=== PATIENT | male | born 1935 | race Caucasian/White ===

== ENCOUNTER → 2017-01-03 | Outpatient (CLI) | payer MEDICARE, OTHER ==
[2017-01-03 13:35] LABS: Calcium 9.5 mg/dL (8.5-10.1); Potassium 4.6 mmol/L (3.5-5.1)
== END | disposition home or self-care (01) ==
LOC: LAB 08:39
PROVIDERS: ATTEND Internal Medicine Cardiovascular Disease
DX: I10 Essential (primary) hypertension (principal); E11.9 Type 2 diabetes mellitus without complications
CPT/HCPCS: 36415; 80048; 83036

== ENCOUNTER → 2017-04-03 | Outpatient (CLI) | payer MEDICARE, OTHER ==
[2017-04-03 12:35] LABS: BUN/Creatinine Ratio 18.3; Calcium 9.1 mg/dL (8.5-10.1); Potassium 4.4 mmol/L (3.5-5.1)
== END | disposition home or self-care (01) ==
LOC: LAB 08:31
PROVIDERS: ATTEND Internal Medicine Cardiovascular Disease
DX: I10 Essential (primary) hypertension (principal); E11.9 Type 2 diabetes mellitus without complications
CPT/HCPCS: 36415; 80048; 83036

== ENCOUNTER → 2017-07-11 | Outpatient (CLI) | payer MEDICARE ==
[2017-07-11 12:41] LABS: Albumin 3.4 g/dL (3.4-5.0); BUN/Creatinine Ratio 17.1; Calcium 9.5 mg/dL (8.5-10.1); Potassium 4.4 mmol/L (3.5-5.1); Total Protein 7.9 g/dL (6.4-8.2)
== END | disposition home or self-care (01) ==
LOC: LAB 08:47
PROVIDERS: ATTEND Internal Medicine Cardiovascular Disease
DX: I10 Essential (primary) hypertension (principal); E78.00 Pure hypercholesterolemia, unspecified; E11.9 Type 2 diabetes mellitus without complications
CPT/HCPCS: 36415; 80053; 80061; 83036

== ENCOUNTER → 2017-09-13 | Outpatient (CLI) | payer MEDICARE ==
[2017-09-13 12:55] LABS: BUN/Creatinine Ratio 14.9; Calcium 9.2 mg/dL (8.5-10.1); Potassium 4.6 mmol/L (3.5-5.1)
== END | disposition home or self-care (01) ==
LOC: LAB 09:20
PROVIDERS: ATTEND Internal Medicine Cardiovascular Disease
DX: I10 Essential (primary) hypertension (principal); E11.9 Type 2 diabetes mellitus without complications
CPT/HCPCS: 36415; 80048; 83036

== ENCOUNTER → 2017-10-25 | Outpatient (CLI) | payer MEDICARE ==
[2017-10-25 11:56] LABS: BUN/Creatinine Ratio 16.1; Calcium 9.2 mg/dL (8.5-10.1); Potassium 4.4 mmol/L (3.5-5.1)
== END | disposition home or self-care (01) ==
LOC: LAB 09:06
PROVIDERS: ATTEND Internal Medicine Cardiovascular Disease
DX: I10 Essential (primary) hypertension (principal)
CPT/HCPCS: 36415; 80048

== ENCOUNTER → 2017-11-21 | Outpatient (CLI) | payer MEDICARE ==
[2017-11-21 12:32] LABS: Albumin 3.1 g/dL (3.4-5.0); BUN/Creatinine Ratio 14.5; Bilirubin, Total 0.8 mg/dL (0.2-1.0); Calcium 9.1 mg/dL (8.5-10.1); Potassium 4.6 mmol/L (3.5-5.1); Total Protein 7.6 g/dL (6.4-8.2)
== END | disposition home or self-care (01) ==
LOC: LAB 08:21
PROVIDERS: ATTEND Internal Medicine Cardiovascular Disease
DX: E78.00 Pure hypercholesterolemia, unspecified (principal); I10 Essential (primary) hypertension; E11.9 Type 2 diabetes mellitus without complications
CPT/HCPCS: 36415; 80053; 80061; 83036

== ENCOUNTER → 2018-01-04 | Outpatient (CLI) | payer MEDICARE | END | disposition home or self-care (01) | LOC: Rad HDHVI 14:50 | PROVIDERS: ATTEND Internal Medicine Cardiovascular Disease | DX: I10 Essential (primary) hypertension (principal); E11.9 Type 2 diabetes mellitus without complications | CPT/HCPCS: 93306 ==

== ENCOUNTER → 2018-01-19 | Outpatient (CLI) | payer MEDICARE ==
[~2018-01-19] VITALS: Ht 170.2 cm; Wt 88.5 kg
[~2018-01-19] MED LIST: ADENOSINE 74 MG in GIVE UN-DILUTED 0 ML IV ONE; ADENOSINE 90 MG/30 ML INJ IV ONE
[2018-01-19 12:21] LABS: Basophils # (auto) 0.1 uL; Basophils % (auto) 1.2 % (0.0-2.0); Eosinophils # (auto) 0.7 uL; Eosinophils % (auto) 5.6 % (0.0-7.0); Hematocrit 39.9 % (41.0-53.0); Lymphocytes # (auto) 1.7 uL; Lymphocytes % (auto) 14.2 % (10.0-50.0); Mean Corpuscular Hemoglobin 28.7 pg (28.0-32.0); Mean Corpuscular Hgb Conc. 32.5 g/dL (32.0-36.0); Monocytes # (auto) 0.9 uL; Monocytes % (auto) 7.4 % (0.0-12.0); Neutrophils # (auto) 8.5 uL; Neutrophils % (auto) 71.6 % (37.0-80.0); Platelet Count (auto) 343 10^3/uL (140-450); Red Blood Cells 4.53 10^6/uL (4.5-5.90); Red Cell Distribution Width 14.9 % (11.8-14.3); White Blood Cell 11.9 10^3/uL (4.4-10.8)
[2018-01-19 12:22] LABS: Urine Blood Negative /uL (Negative); Urine Specific Gravity 1.011 (1.001-1.035)
[2018-01-19 12:41] LABS: Albumin 2.9 g/dL (3.4-5.0); BUN/Creatinine Ratio 12.9; Bilirubin, Total 0.6 mg/dL (0.2-1.0); Calcium 9.5 mg/dL (8.5-10.1); Potassium 4.7 mmol/L (3.5-5.1); Total Protein 7.3 g/dL (6.4-8.2)
[2018-01-19 12:42] LABS: Free T4 (Free Thyroxine) 1.04 ng/dL (0.89-1.76); Prostate Specific Antigen 1.45 ng/mL (0.0-4.0)
== END | disposition home or self-care (01) ==
LOC: Rad HDHVI 09:41
PROVIDERS: ATTEND Internal Medicine Cardiovascular Disease
DX: I49.5 Sick sinus syndrome (principal); E78.5 Hyperlipidemia, unspecified; D64.9 Anemia, unspecified; I10 Essential (primary) hypertension; E03.9 Hypothyroidism, unspecified; E11.9 Type 2 diabetes mellitus without complications; E55.9 Vitamin D deficiency, unspecified; R53.81 Other malaise; R97.20 Elevated prostate specific antigen [PSA]; K74.1 Hepatic sclerosis; D51.9 Vitamin B12 deficiency anemia, unspecified; N39.0 Urinary tract infection, site not specified
CPT/HCPCS: 36415; 78452; 80053; 80061; 81003; 82306; 82607; 83036; 84153; 84403; 84439; 84443; 85025; 93005; 96374; 96375; A9500; J0153

== ENCOUNTER → 2018-11-19 | Outpatient (CLI) | payer MEDICARE | END | disposition home or self-care (01) | LOC: LAB 09:05 | PROVIDERS: ATTEND Internal Medicine Cardiovascular Disease | DX: E11.40 Type 2 diabetes mellitus with diabetic neuropathy, unspecified (principal) | CPT/HCPCS: 36415; 83036 ==

== ENCOUNTER → 2018-12-31 | Outpatient (CLI) | payer MEDICARE ==
[~2018-12-31] MED LIST changes: -ADENOSINE 74 MG in GIVE UN-DILUTED 0 ML IV ONE; -ADENOSINE 90 MG/30 ML INJ IV ONE; +CLON0.1T PO; +DOCU-94 PO
[2018-12-31 12:39] LABS: Potassium 5.4 mmol/L (3.5-5.1)
[2018-12-31 12:42] LABS: BUN/Creatinine Ratio 17.6; Calcium 8.8 mg/dL (8.5-10.1)
== END | disposition home or self-care (01) ==
LOC: Rad HDHVI 10:30
PROVIDERS: ATTEND Internal Medicine Cardiovascular Disease
DX: I08.1 Rheumatic disorders of both mitral and tricuspid valves (principal); I27.20 Pulmonary hypertension, unspecified; E11.9 Type 2 diabetes mellitus without complications; I11.9 Hypertensive heart disease without heart failure
CPT/HCPCS: 36415; 80048; 83036; 93306

== ENCOUNTER → 2019-01-31 | Outpatient (CLI) | payer MEDICARE ==
[~2019-01-31] VITALS: Ht 170.2 cm; Wt 95.3 kg
[~2019-01-31] MED LIST changes: +ADENOSINE 80 MG in GIVE UN-DILUTED 0 ML IV ONE; +ADENOSINE 90 MG/30 ML INJ IV ONE
== END | disposition home or self-care (01) ==
LOC: Rad HDHVI 13:50
PROVIDERS: ATTEND Internal Medicine Cardiovascular Disease
DX: E11.9 Type 2 diabetes mellitus without complications (principal); E16.2 Hypoglycemia, unspecified; E87.6 Hypokalemia; R00.1 Bradycardia, unspecified
CPT/HCPCS: 78452; 93005; 96374; 96375; A9500; J0153

== ENCOUNTER → 2019-02-13 | Outpatient (CLI) | payer MEDICARE ==
[~2019-02-13] MED LIST changes: -ADENOSINE 80 MG in GIVE UN-DILUTED 0 ML IV ONE; -ADENOSINE 90 MG/30 ML INJ IV ONE
[2019-02-13 15:58] LABS: Basophils # (auto) 0.1 uL; Monocytes # (auto) 0.8 uL; Red Cell Distribution Width 16.4 % (11.8-14.3)
[2019-02-13 16:00] LABS: Basophils % (auto) 1.7 % (0.0-2.0); Eosinophils # (auto) 0.4 uL; Eosinophils % (auto) 4.2 % (0.0-7.0); Hematocrit 23.1 % (41.0-53.0); Lymphocytes # (auto) 0.6 uL; Lymphocytes % (auto) 7.7 % (10.0-50.0); Mean Corpuscular Hemoglobin 20.8 pg (28.0-32.0); Mean Corpuscular Hgb Conc. 28.4 g/dL (32.0-36.0); Mean Corpuscular Volume 73.4 fL (80.0-100.0); Neutrophils # (auto) 6.4 uL; Neutrophils % (auto) 76.4 % (37.0-80.0); Nucleated Red Blood Cells % 0.2 %; Platelet Count (auto) 295 10^3/uL (140-450); Red Blood Cells 3.15 10^6/uL (4.5-5.90); White Blood Cell 8.4 10^3/uL (4.4-10.8)
[2019-02-13 16:01] LABS: Potassium 5.1 mmol/L (3.5-5.1)
[2019-02-13 16:13] LABS: BUN/Creatinine Ratio 15.8
[2019-02-13 16:26] LABS: Hemoglobin 6.6 g/dL (13.5-17.5)
== END | disposition home or self-care (01) ==
LOC: LAB 12:13
PROVIDERS: ATTEND Internal Medicine Cardiovascular Disease
DX: I13.0 Hypertensive heart and chronic kidney disease with heart failure and stage 1 through stage 4 chronic kidney disease, or unspecified chronic kidney disease (principal); E11.22 Type 2 diabetes mellitus with diabetic chronic kidney disease; I50.33 Acute on chronic diastolic (congestive) heart failure; N18.2 Chronic kidney disease, stage 2 (mild); E11.40 Type 2 diabetes mellitus with diabetic neuropathy, unspecified
CPT/HCPCS: 36415; 80048; 83036; 85025

== ENCOUNTER 2019-02-15 06:42 | Day surgery (SDC) | payer MEDICARE ==
[2019-02-15] VITALS (9 sets, daily range): BP systolic 111–139; BP diastolic 51–66
--- NOTE | 2019-02-15 07:53 | NUR ---
PT VERBALIZES SIGNS AND SYMPTOMS TO REPORT. PT DENIES DISTRESS. PT AGREES TO BLOOD TRANSFUSION AND KNOWS REASON WHY HE NEEDS ONE.
--- NOTE | 2019-02-15 10:00 | NUR ---
TRANSFUSION IS COMPLETE. PT DENIES DISTRESS. PT STATES HE FEELS BETTER.
--- NOTE | 2019-02-15 12:27 | NUR ---
PT CONTINUES TO DENY DISTRESS. PT STATES HE FEELS LESS SOB. PER PT EVEN AT REST HE WOULD BE SOB.
--- NOTE | 2019-02-15 12:42 | NUR ---
TRANSFUSION COMPLETE. PT DENIES DISTRESS. PT STATES HE FEELS BETTER. NO S&S OF RXN.
--- NOTE | 2019-02-15 12:50 | NUR ---
PT VERBALIZES UNDERSTANDING OF AFTERCARE. PT SKIN PINK WARM AND DRY. VSS. PT AMBULATES WITH STEADY GAIT. NAD NOTED. PT DENIES DISTRESS. PT STATE IMPROVEMENT. PIV DC'D COMPLETE AND INTACT.
== END 2019-02-15 12:54 | disposition home or self-care (01) ==
LOC: CATH 06:42
PROVIDERS: ATTEND Internal Medicine Cardiovascular Disease
DX: D64.9 Anemia, unspecified (principal); Z98.890 Other specified postprocedural states
CPT/HCPCS: 36430; 86850; 86900; 86901; 86920; J7040; P9016

== ENCOUNTER → 2019-03-13 | Outpatient (CLI) | payer MEDICARE ==
[2019-03-13 15:40] LABS: Basophils # (auto) 0.2 uL; Basophils % (auto) 2.1 % (0.0-2.0); Eosinophils # (auto) 0.5 uL; Hemoglobin 8.9 g/dL (13.5-17.5); Mean Corpuscular Hgb Conc. 29.8 g/dL (32.0-36.0); Monocytes # (auto) 0.7 uL; Neutrophils # (auto) 6.5 uL; Nucleated Red Blood Cells % 0.1 %
[2019-03-13 15:44] LABS: Eosinophils % (auto) 5.6 % (0.0-7.0); Hematocrit 29.7 % (41.0-53.0); Lymphocytes % (auto) 10.8 % (10.0-50.0); Mean Corpuscular Volume 77.3 fL (80.0-100.0); Monocytes % (auto) 8.3 % (0.0-12.0); Neutrophils % (auto) 73.2 % (37.0-80.0); Platelet Count (auto) 333 10^3/uL (140-450); Red Blood Cells 3.84 10^6/uL (4.5-5.90); White Blood Cell 8.9 10^3/uL (4.4-10.8)
[2019-03-13 15:54] LABS: Red Cell Distribution Width 23.6 % (11.8-14.3)
[2019-03-13 16:04] LABS: Albumin 3.6 g/dL (3.4-5.0); BUN/Creatinine Ratio 19.3; Bilirubin, Total 0.8 mg/dL (0.2-1.0); Calcium 9.1 mg/dL (8.5-10.1); Total Protein 7.3 g/dL (6.4-8.2)
[2019-03-13 16:08] LABS: Potassium 5.6 mmol/L (3.5-5.1)
== END | disposition home or self-care (01) ==
LOC: CHF HDHVI 12:18
PROVIDERS: ATTEND Internal Medicine Cardiovascular Disease
DX: D64.9 Anemia, unspecified (principal); I10 Essential (primary) hypertension; Z79.899 Other long term (current) drug therapy
CPT/HCPCS: 36415; 80053; 83036; 85025

== ENCOUNTER → 2019-04-24 | Outpatient (CLI) | payer MEDICARE ==
[2019-04-24 12:10] LABS: Potassium 5.1 mmol/L (3.5-5.1)
[2019-04-24 12:21] LABS: Albumin 3.2 g/dL (3.4-5.0); BUN/Creatinine Ratio 12.1; Bilirubin, Total 0.8 mg/dL (0.2-1.0); Calcium 9.2 mg/dL (8.5-10.1); Total Protein 7.2 g/dL (6.4-8.2)
== END | disposition home or self-care (01) ==
LOC: LAB 09:25
PROVIDERS: ATTEND Internal Medicine Cardiovascular Disease
DX: E87.6 Hypokalemia (principal); I10 Essential (primary) hypertension
CPT/HCPCS: 36415; 80053

== ENCOUNTER → 2019-05-06 | Outpatient (CLI) | payer MEDICARE | END | disposition home or self-care (01) | LOC: Rad HDHVI 10:48 | PROVIDERS: ATTEND Internal Medicine Cardiovascular Disease | DX: K57.30 Diverticulosis of large intestine without perforation or abscess without bleeding (principal); K40.90 Unilateral inguinal hernia, without obstruction or gangrene, not specified as recurrent; K44.9 Diaphragmatic hernia without obstruction or gangrene; N40.0 Benign prostatic hyperplasia without lower urinary tract symptoms | CPT/HCPCS: 74176 ==

== ENCOUNTER → 2019-09-04 | Outpatient (CLI) | payer MEDICARE ==
[2019-09-04 12:07] LABS: Basophils # (auto) 0.1 uL; Basophils % (auto) 1.4 % (0.0-2.0); Eosinophils # (auto) 0.4 uL; Eosinophils % (auto) 5.6 % (0.0-7.0); Hematocrit 45.9 % (41.0-53.0); Hemoglobin 15.4 g/dL (13.5-17.5); Lymphocytes # (auto) 0.9 uL; Lymphocytes % (auto) 12.9 % (10.0-50.0); Mean Corpuscular Hgb Conc. 33.5 g/dL (32.0-36.0); Mean Corpuscular Volume 89.6 fL (80.0-100.0); Monocytes # (auto) 0.6 uL; Monocytes % (auto) 8.9 % (0.0-12.0); Neutrophils % (auto) 71.2 % (37.0-80.0); Nucleated Red Blood Cells % 0.1 %; Platelet Count (auto) 191 10^3/uL (140-450); Red Blood Cells 5.13 10^6/uL (4.5-5.90); Red Cell Distribution Width 15.8 % (11.8-14.3)
[2019-09-04 12:36] LABS: Albumin 3.6 g/dL (3.4-5.0); BUN/Creatinine Ratio 15.1; Bilirubin, Direct 0.3 mg/dL (0-0.2); Bilirubin, Total 1.6 mg/dL (0.2-1.0); Total Protein 7.3 g/dL (6.4-8.2)
[2019-09-04 14:14] LABS: Potassium 5.9 mmol/L (3.5-5.1)
== END | disposition home or self-care (01) ==
LOC: LAB 09:35
PROVIDERS: ATTEND Internal Medicine Cardiovascular Disease
DX: E03.9 Hypothyroidism, unspecified (principal); K90.9 Intestinal malabsorption, unspecified; C61 Malignant neoplasm of prostate; E29.1 Testicular hypofunction; E11.40 Type 2 diabetes mellitus with diabetic neuropathy, unspecified; Z79.899 Other long term (current) drug therapy
CPT/HCPCS: 36415; 80048; 80061; 80076; 82306; 83036; 84153; 84403; 84443; 85025

== ENCOUNTER → 2019-09-06 | Outpatient (CLI) | payer MEDICARE ==
[~2019-09-06] MED LIST changes: +FUROSEMIDE 40 MG/4 ML VIAL IV ONE; +FUROSEMIDE 40 MG/4 ML VIAL ONE; +SODIUM CHLORIDE 0.9% 500 ML IV ONE
[2019-09-06 10:00] VITALS: BP 141/73
[2019-09-06 11:36] VITALS: BP 131/62
--- NOTE | 2019-09-06 11:36 | NUR ---
[facility] Discharge Instructions See e-MAR for any mediations given with this visit. Patient education given on disease process. Patient verbalized understanding. Previous labs reviewed. Patient discharged in stable condition with after care instructions and follow up appointment. NOTE LASIX IVP ADMIN BY ROSETTA BERNAL NS [id number] ADMIN BY ROSETTA BERNAL SAMPLES OF VALTESSA GIVEN TO PATIENT WITH INSTRUCTIONS AND FOLLOW UP LABS ON Monday09/11/19
== END | disposition home or self-care (01) ==
LOC: CHF HDHVI 09:52
PROVIDERS: ATTEND Internal Medicine Cardiovascular Disease
DX: E78.5 Hyperlipidemia, unspecified (principal); E87.5 Hyperkalemia; E11.40 Type 2 diabetes mellitus with diabetic neuropathy, unspecified; E03.9 Hypothyroidism, unspecified; I10 Essential (primary) hypertension; Z79.899 Other long term (current) drug therapy
CPT/HCPCS: 36415; 84132; 96361; 96374; G0463; J1940; J7040

== ENCOUNTER → 2019-09-11 | Outpatient (CLI) | payer MEDICARE ==
[~2019-09-11] MED LIST changes: -FUROSEMIDE 40 MG/4 ML VIAL IV ONE; -FUROSEMIDE 40 MG/4 ML VIAL ONE; -SODIUM CHLORIDE 0.9% 500 ML IV ONE
[2019-09-11 11:20] VITALS: BP 110/62
[2019-09-11 12:37] LABS: Anion Gap 7 (5-15); Carbon Dioxide 26 mmol/L (21-32); Chloride 107 mmol/L (98-107); Glucose 160 mg/dL (74-106); Potassium 4.7 mmol/L (3.5-5.1); Sodium 140 mmol/L (136-145)
[2019-09-11 12:38] LABS: BUN/Creatinine Ratio 16.2; Blood Urea Nitrogen 38 mg/dL (7-18); Calcium 9.2 mg/dL (8.5-10.1); GFR African American 34 mL/min; GFR Non-African American 28 mL/min
[2019-09-11 12:45] VITALS: BP 110/62
--- NOTE | 2019-09-11 12:45 | NUR ---
[facility] Discharge Instructions See e-MAR for any mediations given with this visit. Patient education given on disease process. Patient verbalized understanding. Previous labs reviewed. Patient discharged in stable condition with after care instructions and follow up appointment. NOTE PATIENT PRESCRIPTION FOR VALTESSA 8.4G DAILY SENT ELECTRONICALLY TO PATIENT PREFERRED PHARMACY.
== END | disposition home or self-care (01) ==
LOC: CHF HDHVI 10:53
PROVIDERS: ATTEND Internal Medicine Cardiovascular Disease
DX: E87.6 Hypokalemia (principal)
CPT/HCPCS: 36415; 80048; G0463

== ENCOUNTER → 2019-09-17 | Outpatient (CLI) | payer MEDICARE ==
[2019-09-17 12:38] VITALS: BP 139/68
--- NOTE | 2019-09-17 12:38 | NUR ---
[facility] ARRIVED AT [facility] FOR LAB DRAW. PT ON VALTESSA DAILY . K AND MG DRAWN. PT A/O X 4 0 DISTRESS HARD OF HEARING. VSS
[2019-09-17 13:00] VITALS: BP 140/66
--- NOTE | 2019-09-17 13:00 | NUR ---
Discharge Instructions See e-MAR for any mediations given with this visit. Patient education given on disease process. Patient verbalized understanding. Previous labs reviewed. Patient discharged in stable condition with after care instructions and follow up appointment. MEDICATION REVIEW OF VALTESSA DONE. EXPLAINED AND PROVIDED LITERATURE ABOUT THE ADMINISTRATION OF VALTESSA AND THE POSSIBLE SIDE EFFECTS, PT STATED HE TAKES HIS VALTESSA AT 5PM DAILY AND HIS OTHER ORAL MEDS AT 8PM. EXPLAINED TO PATIENT THAT [facility] WILL BE DELIVERING MEDICATION TO THE PATIENTS HOUSE. PT VERBALIZED UNDERSTANDING. PROVIDED SAMPLE BOX TO PATIENT AND INSTRUCTED TO HOLD MEDICATION UNTIL LABS RESULTS FROM TODAY ARE RECEIVED. WILL CALL AND UPDATE PATIENT. PATIENT VERBALIZED UNDERSTANDING OF THE PLAN OF CARE.
[2019-09-17 15:27] LABS: Magnesium 2.2 mg/dL (1.6-2.6); Potassium 4.7 mmol/L (3.5-5.1)
== END | disposition home or self-care (01) ==
LOC: CHF HDHVI 12:47
PROVIDERS: ATTEND Internal Medicine Cardiovascular Disease
DX: E87.6 Hypokalemia (principal); I10 Essential (primary) hypertension; E11.9 Type 2 diabetes mellitus without complications
CPT/HCPCS: 36415; 83735; 84132; G0463

== ENCOUNTER → 2019-09-25 | Outpatient (CLI) | payer MEDICARE ==
[2019-09-25 12:21] LABS: Potassium 4.5 mmol/L (3.5-5.1)
== END | disposition home or self-care (01) ==
LOC: CHF HDHVI 11:22
PROVIDERS: ATTEND Internal Medicine Cardiovascular Disease
DX: E87.5 Hyperkalemia (principal); E83.42 Hypomagnesemia; R94.4 Abnormal results of kidney function studies
CPT/HCPCS: 36415; 82565; 83735; 84132; 84520

== ENCOUNTER → 2019-10-15 | Outpatient (CLI) | payer MEDICARE ==
[2019-10-15 16:31] LABS: Potassium 5.1 mmol/L (3.5-5.1)
== END | disposition home or self-care (01) ==
LOC: CHF HDHVI 12:43
PROVIDERS: ATTEND Internal Medicine Cardiovascular Disease
DX: E83.40 Disorders of magnesium metabolism, unspecified (principal); E87.6 Hypokalemia
CPT/HCPCS: 36415; 83735; 84132

== ENCOUNTER → 2019-12-11 | Outpatient (CLI) | payer MEDICARE ==
[2019-12-11 15:58] LABS: Basophils # (auto) 0.1 uL; Basophils % (auto) 2.1 % (0.0-2.0); Eosinophils # (auto) 0.4 uL; Eosinophils % (auto) 5.1 % (0.0-7.0); Hemoglobin 14.4 g/dL (13.5-17.5); Lymphocytes # (auto) 1.1 uL; Mean Corpuscular Hemoglobin 30.7 pg (28.0-32.0); Mean Corpuscular Hgb Conc. 33.5 g/dL (32.0-36.0); Mean Corpuscular Volume 91.8 fL (80.0-100.0); Monocytes # (auto) 0.5 uL; Monocytes % (auto) 7.2 % (0.0-12.0); Neutrophils % (auto) 70.6 % (37.0-80.0); Platelet Count (auto) 189 10^3/uL (140-450); Red Blood Cells 4.69 10^6/uL (4.5-5.90); Red Cell Distribution Width 14.4 % (11.8-14.3); White Blood Cell 7.1 10^3/uL (4.4-10.8)
[2019-12-11 16:06] LABS: Albumin 3.5 g/dL (3.4-5.0); Potassium 5.4 mmol/L (3.5-5.1)
[2019-12-11 16:10] LABS: BUN/Creatinine Ratio 14.2; Bilirubin, Direct 0.3 mg/dL (0-0.2); Bilirubin, Total 1.5 mg/dL (0.2-1.0); Total Protein 7.6 g/dL (6.4-8.2)
== END | disposition home or self-care (01) ==
LOC: LAB 11:11
PROVIDERS: ATTEND Internal Medicine Cardiovascular Disease
DX: C61 Malignant neoplasm of prostate (principal); E03.9 Hypothyroidism, unspecified; K90.9 Intestinal malabsorption, unspecified; E29.1 Testicular hypofunction; Z79.899 Other long term (current) drug therapy
CPT/HCPCS: 36415; 80048; 80061; 80076; 82306; 83036; 84153; 84403; 84443; 85025

== ENCOUNTER → 2020-02-05 | Outpatient (CLI) | payer MEDICARE ==
[~2020-02-05] VITALS: Ht 167.6 cm; Wt 90.3 kg
[~2020-02-05] MED LIST changes: +ADENOSINE 76 MG in GIVE UN-DILUTED 0 ML IV ONE; +ADENOSINE 90 MG/30 ML INJ IV ONE
--- NOTE | 2020-02-05 11:25 | NUR ---
Pt seen for stress test. Presented with bradycardia, EKG completed showing heart block. Per Dr. Molina, patient to be scheduled for pacemaker and instructed to stop taking Metoprolol and Digoxin.
== END | disposition home or self-care (01) ==
LOC: Rad HDHVI 08:25
PROVIDERS: ATTEND Internal Medicine Cardiovascular Disease
DX: E78.00 Pure hypercholesterolemia, unspecified (principal); E11.9 Type 2 diabetes mellitus without complications; I10 Essential (primary) hypertension
CPT/HCPCS: 78452; 93005; 93306; 96374; 96375; A9500; J0153

== ENCOUNTER → 2020-02-10 | Outpatient (CLI) | payer MEDICARE ==
[~2020-02-10] VITALS: Ht 167.6 cm; Wt 90.7 kg
[~2020-02-10] MED LIST changes: -ADENOSINE 76 MG in GIVE UN-DILUTED 0 ML IV ONE; -ADENOSINE 90 MG/30 ML INJ IV ONE; +ATOR20TA50 PO; +DRON400T PO; +FERR-20 PO; +FINA5TAB4 PO; +MEMA1TAB5 PO; +PANT40TA2 PO; +TAM04C PO
[2020-02-10 16:00] LABS: Basophils # (auto) 0.1 10 ^3/uL (0-0.2); Basophils % (auto) 1.9 % (0.0-2.0); Eosinophils # (auto) 0.5 10 ^3/uL (0-0.8); Eosinophils % (auto) 6.3 % (0.0-7.0); Hematocrit 43.2 % (41.0-53.0); Hemoglobin 14.4 g/dL (13.5-17.5); Lymphocytes # (auto) 1.1 10 ^3/uL (0.4-5.4); Lymphocytes % (auto) 14.4 % (10.0-50.0); Mean Corpuscular Hemoglobin 30.5 pg (28.0-32.0); Mean Corpuscular Hgb Conc. 33.2 g/dL (32.0-36.0); Mean Corpuscular Volume 91.9 fL (80.0-100.0); Monocytes # (auto) 0.7 10 ^3/uL (0-1.3); Monocytes % (auto) 9.5 % (0.0-12.0); Neutrophils # (auto) 4.9 10 ^3/uL (1.6-8.6); Neutrophils % (auto) 67.9 % (37.0-80.0); Nucleated Red Blood Cells % 0.1 %; Platelet Count (auto) 185 10^3/uL (140-450); Red Blood Cells 4.71 10^6/uL (4.5-5.90); White Blood Cell 7.3 10^3/uL (4.4-10.8)
[2020-02-10 16:09] LABS: BUN/Creatinine Ratio 13.3; Calcium 9.1 mg/dL (8.5-10.1)
[2020-02-10 16:23] LABS: INR 1.03 (0.9-1.15); Partial Thromboplastin Time 27.9 sec (23.64-32.05)
[2020-02-10 16:24] LABS: Potassium 5.7 mmol/L (3.5-5.1)
== END | disposition home or self-care (01) ==
LOC: Rad HDHVI 12:24
PROVIDERS: ATTEND Internal Medicine Cardiovascular Disease
DX: Z01.812 Encounter for preprocedural laboratory examination (principal); K44.9 Diaphragmatic hernia without obstruction or gangrene; I51.7 Cardiomegaly
CPT/HCPCS: 36415; 71046; 80048; 85025; 85610; 85730

== ENCOUNTER 2020-02-13 09:22 | Inpatient (IN) | payer MEDICARE ==
[~2020-02-13] VITALS: Ht 167.6 cm; Wt 90.3 kg
[~2020-02-13 09:22] MED LIST changes: -CLON0.1T PO
[2020-02-13] MEDS ORDERED: VANCOMYCIN 1GM/250ML 250 ML IV ONE ×2 (10:30→10:40)
[2020-02-13] MEDS ORDERED: VANCOMYCIN HCL 1000 MG VL ONE (11:56)
[2020-02-13] MEDS ORDERED: fentaNYL CITRATE 100 MCG/2 ML VL ONE (11:57)
[2020-02-13] MEDS ORDERED: MIDAZOLAM HCL 1MG/1ML-2 ML VIAL ONE (11:57)
[2020-02-13] MEDS ORDERED: LIDOCAINE 2%HCL (LOCAL ANESTH.) INJ 20ML MDV ONE (11:57)
[2020-02-13] MEDS ORDERED: DEXTROSE 50% SYRINGE 50 ML IV ONE (12:58)
[2020-02-13] MEDS ORDERED: NITROGLYCERIN 0.4 MG SL TAB SL PRN (14:00)
[2020-02-13] MEDS ORDERED: MORPHINE SULF INJ 2 MG/ML SYRINGE 1ML IV PRN (14:00)
[2020-02-13] MEDS ORDERED: ceFAZolin 1GM/50ML 50 ML IV SCH (14:00)
[2020-02-13 15:00] VITALS: BP 131/89
--- NOTE | 2020-02-13 15:00 | NUR ---
PATIENT UP TO FLOOR FROM [employer]. ANIL BERNAL BROUGHT UP WITH SLING TO LEFT ARM D/T PACEMAKER INSERTION. PATIENT ORIENTED TO RN, ROOM AND UNIT POLICY. TELE BOX 53 RUN NORMAL SINUS WITH PVC'S. PATIENT STABLE WITH NO SOB, OR PAIN AT THIS TIME.
[2020-02-13 16:00] VITALS: BP 131/89
[2020-02-13 16:20] VITALS: BP 131/89
[2020-02-13] MEDS: ceFAZolin 1GM/50ML 50 ML IV SCH (19:06)
--- NOTE | 2020-02-13 19:21 | NUR ---
Opening Shift Note Assumed care of patient, awake and alert. No S/S of distress/SOB or pain. Instructed on POC and to call for assist PRN, will continue to monitor for changes Q1hr and PRN. Side rails up x2. Bed locked in lowest position. Call light within reach. Ice pack on left chest. Sling in place on left arm.
[2020-02-13 21:00] VITALS: BP 150/86
[2020-02-13] MEDS: DOCUSATE SOD 100 MG CAP PO SCH (21:46)
[2020-02-13] MEDS: DRONEDARONE HCL 400 MG TAB PO SCH (21:47)
[2020-02-13] MEDS: MEMANTINE HCL 5 MG TAB PO SCH (21:47)
[2020-02-13] MEDS ORDERED: PATIENTS OWN MEDICATION (Dronedarone Hydrochloride (Multaq) 1 TAB) PO SCH (22:00)
[2020-02-13] MEDS ORDERED: PATIENTS OWN MEDICATION (Memantine Hydrochloride (Memantine HCl) 10 MG) PO SCH (22:00)
[2020-02-14] MEDS: ceFAZolin 1GM/50ML 50 ML IV SCH ×2 (03:00→11:19)
--- NOTE | 2020-02-14 04:54 | NUR ---
Called/paged Dr. Molina called re: High blood pressure of 162/86. Waiting for call back. Continue care.
[2020-02-14 05:00] VITALS: BP 162/86
--- NOTE | 2020-02-14 08:20 | NUR ---
Opening Note Assumed care of patient, he is A & O x4, but hard of hearing, patient wears hearing aids. POC discussed with patient, no s/s of distress at this time. Educated patient regarding pacemaker placement and need for sling to the left. Arm, patient informed this RN that he is left handed and it is difficult to maintain ADLs. Will assist patient as needed. Bed is in lowest, locked position, call light within reach. Bed alarm on for safety, patient was noted to be unsteady on his feet per NOC shift. Will continue to monitor Q1h and PRN.
--- NOTE | 2020-02-14 08:35 | NUR ---
Placed ice pack to left shoulder. Encouraged patient to leave ice pack in place to prevent swelling.
[2020-02-14 09:00] VITALS: BP 160/83
[2020-02-14] MEDS: DRONEDARONE HCL 400 MG TAB PO SCH (09:13)
[2020-02-14] MEDS: MEMANTINE HCL 5 MG TAB PO SCH (09:13)
[2020-02-14] MEDS: DOCUSATE SOD 100 MG CAP PO SCH (09:14)
[2020-02-14] MEDS ORDERED: ATORVASTATIN 20 MG TAB PO SCH (10:00)
[2020-02-14] MEDS ORDERED: TAMSULOSIN HYDROCHLORIDE 0.4 MG CAP PO SCH (10:00)
[2020-02-14] MEDS ORDERED: FERROUS SULFATE 65 MG PO SCH (10:00)
[2020-02-14] MEDS ORDERED: FINASTERIDE 5 MG TAB PO SCH (10:00)
[2020-02-14] MEDS ORDERED: PANTOPRAZOLE 40 MG TAB PO SCH (10:00)
[2020-02-14 10:45] VITALS: BP 144/70
[2020-02-14 13:00] VITALS: BP 135/71
[2020-02-14 17:00] VITALS: BP 150/88
--- NOTE | 2020-02-14 19:15 | NUR ---
Opening Shift Note Received report from dayshift RN. Per report, patient is discharged. DOLORES Brown, gave patient patient discharge education and had the discharge paper signed. Patient will wait for transport. Assumed care of patient, awake and alert. No S/S of distress/SOB or pain. Instructed on POC and to call for assist PRN, will continue to monitor for changes Q1hr and PRN.
[2020-02-14 20:00] VITALS: BP 142/95
--- NOTE | 2020-02-14 20:25 | NUR ---
Discharge instructions given as ordered by DOLORES Brown. Encourage to follow up with PMD as instructed. All questions and concerns addressed. Patient verbalized understanding. Medication reconciliation form completed and copy given to patient. No home medications held in Pharmacy and needed vaccines refused. IV removed with catheter intact, pressure dressing applied, patient voiding freely. Telemetry unit returned to ICU. Patient taken to vehicle via wheelchair with all personal belongings, accompanied by staff and met by family member. No distress noted at time of departure.
== END 2020-02-14 19:25 | disposition home or self-care (01) | DRG 242 ==
LOC: CATH 09:22 → TELE-WESTW 15:26
PROVIDERS: ADMIT Internal Medicine Cardiovascular Disease; ATTEND Internal Medicine Cardiovascular Disease
PROC: 0JH606Z Insertion of Pacemaker, Dual Chamber into Chest Subcutaneous Tissue and Fascia, Open Approach (ICD-10-PCS; principal; 2020-02-13)
PROC: 02H63JZ Insertion of Pacemaker Lead into Right Atrium, Percutaneous Approach (ICD-10-PCS; 2020-02-13)
PROC: 02HK3JZ Insertion of Pacemaker Lead into Right Ventricle, Percutaneous Approach (ICD-10-PCS; 2020-02-13)
PROC: 5A2204Z Restoration of Cardiac Rhythm, Single (ICD-10-PCS; 2020-02-13)
DX: I49.5 Sick sinus syndrome (principal); I50.21 Acute systolic (congestive) heart failure; I48.92 Unspecified atrial flutter; D68.59 Other primary thrombophilia; I13.0 Hypertensive heart and chronic kidney disease with heart failure and stage 1 through stage 4 chronic kidney disease, or unspecified chronic kidney disease; I49.8 Other specified cardiac arrhythmias; I48.91 Unspecified atrial fibrillation; N18.2 Chronic kidney disease, stage 2 (mild); N40.0 Benign prostatic hyperplasia without lower urinary tract symptoms; I12.9 Hypertensive chronic kidney disease with stage 1 through stage 4 chronic kidney disease, or unspecified chronic kidney disease; E78.5 Hyperlipidemia, unspecified; I25.10 Atherosclerotic heart disease of native coronary artery without angina pectoris; Z86.73 Personal history of transient ischemic attack (TIA), and cerebral infarction without residual deficits; Z79.899 Other long term (current) drug therapy
CPT/HCPCS: 33208; 71045; 82962; 93005; 99152; G0378; J0690; J2250

== ENCOUNTER → 2020-03-20 | Outpatient (CLI) | payer MEDICARE ==
[2020-03-20 12:12] LABS: BUN/Creatinine Ratio 16.9; Calcium 8.7 mg/dL (8.5-10.1); Potassium 4.8 mmol/L (3.5-5.1)
== END | disposition home or self-care (01) ==
LOC: LAB 10:00
PROVIDERS: ATTEND Internal Medicine Cardiovascular Disease
DX: I10 Essential (primary) hypertension (principal)
CPT/HCPCS: 36415; 80048

== ENCOUNTER → 2020-06-03 | Outpatient (CLI) | payer MEDICARE ==
[2020-06-03 11:58] LABS: Basophils # (auto) 0.1 10 ^3/uL (0-0.2); Basophils % (auto) 2.1 % (0.0-2.0); Eosinophils # (auto) 0.6 10 ^3/uL (0-0.8); Eosinophils % (auto) 9.1 % (0.0-7.0); Hematocrit 43.2 % (41.0-53.0); Hemoglobin 14.3 g/dL (13.5-17.5); Lymphocytes # (auto) 1.2 10 ^3/uL (0.4-5.4); Lymphocytes % (auto) 19.6 % (10.0-50.0); Mean Corpuscular Hemoglobin 29.6 pg (28.0-32.0); Mean Corpuscular Hgb Conc. 33.2 g/dL (32.0-36.0); Monocytes # (auto) 0.6 10 ^3/uL (0-1.3); Monocytes % (auto) 9.5 % (0.0-12.0); Neutrophils # (auto) 3.7 10 ^3/uL (1.6-8.6); Neutrophils % (auto) 59.7 % (37.0-80.0); Nucleated Red Blood Cells % 0.1 %; Platelet Count (auto) 178 10^3/uL (140-450); Red Blood Cells 4.86 10^6/uL (4.5-5.90); Red Cell Distribution Width 14.1 % (11.8-14.3); White Blood Cell 6.2 10^3/uL (4.4-10.8)
[2020-06-03 12:06] LABS: Potassium 4.7 mmol/L (3.5-5.1)
[2020-06-03 12:18] LABS: Albumin 3.3 g/dL (3.4-5.0); BUN/Creatinine Ratio 16.1; Bilirubin, Direct 0.3 mg/dL (0-0.2); Bilirubin, Total 1.3 mg/dL (0.2-1.0)
== END | disposition home or self-care (01) ==
LOC: LAB 08:12
PROVIDERS: ATTEND Internal Medicine Cardiovascular Disease
DX: E29.1 Testicular hypofunction (principal); C61 Malignant neoplasm of prostate; K90.9 Intestinal malabsorption, unspecified; E03.9 Hypothyroidism, unspecified; E11.9 Type 2 diabetes mellitus without complications; Z00.00 Encounter for general adult medical examination without abnormal findings
CPT/HCPCS: 36415; 80048; 80061; 80076; 82306; 83036; 84153; 84403; 84443; 85025

== ENCOUNTER 2020-10-26 12:00 | Inpatient (IN) | payer MEDICARE ==
[~2020-10-26] VITALS: Ht 170.2 cm; Wt 85.5 kg
[2020-10-26] MEDS ORDERED: FUROSEMIDE 40 MG/4 ML VIAL IV ONE (12:15)
[2020-10-26 12:31] LABS: Hemoglobin 11.3 g/dL (13.5-17.5); Mean Corpuscular Hemoglobin 26.6 pg (28.0-32.0); Mean Corpuscular Volume 82.5 fL (80.0-100.0); Red Blood Cells 4.24 10^6/uL (4.5-5.90)
[2020-10-26 12:33] LABS: Mean Corpuscular Hgb Conc. 32.3 g/dL (32.0-36.0); Red Cell Distribution Width 16.1 % (11.8-14.3); White Blood Cell 8.5 10^3/uL (4.4-10.8)
[2020-10-26 12:38] LABS: Band Neutrophils % (manual) 0; Basophils % (manual) 0 (0.0-2.0); Blast Cells 0; Eosinophils % (manual) 0 (0-7); Metamyelocytes % 0; Promyelocytes % 0; Reactive Lymphocytes 0
[2020-10-26 12:53] LABS: Calcium 8.8 mg/dL (8.5-10.1); Lymphocytes % (manual) 5 (10.0-50.0); Magnesium 2.2 mg/dL (1.6-2.6); Monocytes % (manual) 10 (0-12); Myelocytes % 2; Potassium 4.6 mmol/L (3.5-5.1)
[2020-10-26 13:01] LABS: BUN/Creatinine Ratio 18.4
[2020-10-26] MEDS ORDERED: methylPREDNISolone SOD SUCC 125 MG/2 ML VL IV ONE (13:15)
[2020-10-26] MEDS ORDERED: AZITHROMYCIN 500MG/ 250ML 250 ML IV ONE (13:15)
[2020-10-26] MEDS: DOBUTamine 1000MCG/ML 250 ML IV SCH (15:30)
[2020-10-26] MEDS ORDERED: NITROGLYCERIN 0.4 MG SL TAB SL PRN (15:30)
[2020-10-26] MEDS ORDERED: PIPERACILLIN-TAZO 4.5GM 100 ML IV ONE (15:30)
[2020-10-26] MEDS ORDERED: REMDESIVIR PER PHARMACY 0 ML IV SCH (15:30)
[2020-10-26] MEDS: BUDESONIDE (INHALATION) 0.5 MG/2 ML NEB NEB SCH ×2 (15:30→19:15)
[2020-10-26] MEDS ORDERED: MORPHINE SULFATE INJECTION 2 MG/ML SYRG IV PRN (15:30)
[2020-10-26] MEDS ORDERED: ALBUTEROL SULF 2.5 MG/0.5ML(0.5%) NEB SOLN NEB PRN (17:15)
[2020-10-26] MEDS: FUROSEMIDE 40 MG/4 ML VIAL IV SCH (18:00)
[2020-10-26] MEDS: IPRATROPIUM BROM 0.5 MG/2.5ML INH SOL NEB SCH ×2 (18:00→19:15)
[2020-10-26 21:31] LABS: Basophils # (auto) 0 10 ^3/uL (0-0.2); Basophils % (auto) 0.3 % (0.0-2.0); Eosinophils # (auto) 0 10 ^3/uL (0-0.8); Hematocrit 32.7 % (41.0-53.0); Hemoglobin 10.9 g/dL (13.5-17.5); Lymphocytes # (auto) 0.4 10 ^3/uL (0.4-5.4); Lymphocytes % (auto) 6.8 % (10.0-50.0); Mean Corpuscular Hgb Conc. 33.4 g/dL (32.0-36.0); Monocytes # (auto) 0.2 10 ^3/uL (0-1.3); Monocytes % (auto) 2.9 % (0.0-12.0); Neutrophils # (auto) 5.4 10 ^3/uL (1.6-8.6); Nucleated Red Blood Cells % 0.5 %; Red Blood Cells 4.04 10^6/uL (4.5-5.90); Red Cell Distribution Width 15.7 % (11.8-14.3)
[2020-10-26 21:47] LABS: BUN/Creatinine Ratio 19.1; Calcium 8.2 mg/dL (8.5-10.1); Potassium 4.7 mmol/L (3.5-5.1)
[2020-10-26] MEDS: ERGOCALCIFEROL 50,000 UNIT(1.25MG) CAP PO SCH (22:00)
[2020-10-26] MEDS: POTASSIUM CHL 20 Meq TABLET PO SCH (23:28)
[2020-10-26] MEDS: ZINC SULFATE 220mg CAP or TAB PO SCH (23:28)
[2020-10-26] MEDS: PIPERACILLIN-TAZOB 3.375GM 100 ML IV SCH (23:30)
[2020-10-27] MEDS: DOBUTamine 1000MCG/ML 250 ML IV SCH ×3 (00:42→19:06)
[2020-10-27] MEDS: IPRATROPIUM BROM 0.5 MG/2.5ML INH SOL NEB SCH ×3 (06:00→14:00)
[2020-10-27] MEDS: BUDESONIDE (INHALATION) 0.5 MG/2 ML NEB NEB SCH ×2 (06:00→14:00)
[2020-10-27] MEDS: FUROSEMIDE 40 MG/4 ML VIAL IV SCH ×2 (06:52→17:20)
[2020-10-27] MEDS: PIPERACILLIN-TAZOB 3.375GM 100 ML IV SCH ×3 (08:01→17:35)
[2020-10-27] MEDS: ERGOCALCIFEROL 50,000 UNIT(1.25MG) CAP PO SCH (10:00)
[2020-10-27] MEDS: PANTOPRAZOLE 40 MG TAB PO SCH (10:46)
[2020-10-27] MEDS: ZINC SULFATE 220mg CAP or TAB PO SCH (10:46)
[2020-10-27] MEDS: POTASSIUM CHL 20 Meq TABLET PO SCH ×2 (10:46→22:45)
[2020-10-27] MEDS: ASCORBIC ACID 500 MG TAB PO SCH (10:46)
[2020-10-27 13:18] LABS: Potassium 4.5 mmol/L (3.5-5.1)
[2020-10-27 13:26] LABS: BUN/Creatinine Ratio 21.7; Bilirubin, Total 0.9 mg/dL (0.2-1.0); Calcium 8.3 mg/dL (8.5-10.1); Total Protein 6.8 g/dL (6.4-8.2)
[2020-10-27] MEDS: ALBUTEROL SULF HFA 90MCG INH 200DOSE IN PRN (20:16)
[2020-10-27] MEDS: BUDESONIDE (INHALATION) 180 MCG IH IN SCH (20:16)
[2020-10-28] MEDS: PIPERACILLIN-TAZOB 3.375GM 100 ML IV SCH ×4 (01:05→18:00)
[2020-10-28] MEDS: DOBUTamine 1000MCG/ML 250 ML IV SCH (04:18)
[2020-10-28] MEDS: FUROSEMIDE 40 MG/4 ML VIAL IV SCH ×2 (07:20→19:10)
[2020-10-28] MEDS: BUDESONIDE (INHALATION) 180 MCG IH IN SCH ×2 (07:21→23:03)
[2020-10-28] MEDS: ALBUTEROL SULF HFA 90MCG INH 200DOSE IN PRN (09:08)
[2020-10-28 10:00] VITALS: BP 130/82
[2020-10-28] MEDS: POTASSIUM CHL 20 Meq TABLET PO SCH ×2 (11:58→18:55)
[2020-10-28] MEDS: ZINC SULFATE 220mg CAP or TAB PO SCH (11:58)
[2020-10-28] MEDS: PANTOPRAZOLE 40 MG TAB PO SCH (11:58)
[2020-10-28] MEDS: ASCORBIC ACID 500 MG TAB PO SCH (11:59)
[2020-10-28 16:00] VITALS: BP 146/77
[2020-10-28] MEDS ORDERED: REMDESIVIR PER PHARMACY 0 ML IV SCH (17:30)
[2020-10-28] MEDS ORDERED: REMDESIVIR 200 MG in NS 210ml LOADING DOSE ADULT IV ONE (20:00)
[2020-10-29] VITALS: BP 127/66
[2020-10-29] MEDS: PIPERACILLIN-TAZOB 3.375GM 100 ML IV SCH ×3 (02:39→18:00)
[2020-10-29 08:00] VITALS: BP 127/88
[2020-10-29] MEDS ORDERED: REMDESIVIR 200 MG in NS 210ml LOADING DOSE ADULT IV ONE (09:45)
[2020-10-29] MEDS: BUDESONIDE (INHALATION) 180 MCG IH IN SCH ×2 (10:00→19:31)
[2020-10-29] MEDS: ZINC SULFATE 220mg CAP or TAB PO SCH (10:00)
[2020-10-29] MEDS: PANTOPRAZOLE 40 MG TAB PO SCH (10:00)
[2020-10-29] MEDS: POTASSIUM CHL 20 Meq TABLET PO SCH (10:00)
[2020-10-29] MEDS: ASCORBIC ACID 500 MG TAB PO SCH (10:00)
[2020-10-29 16:00] VITALS: BP 147/92
[2020-10-29] MEDS: FUROSEMIDE 40 MG/4 ML VIAL IV SCH (16:00)
[2020-10-29] MEDS: ALBUTEROL SULF HFA 90MCG INH 200DOSE IN PRN ×2 (17:03→19:31)
[2020-10-30] VITALS: BP 125/64
[2020-10-30] MEDS: PIPERACILLIN-TAZOB 3.375GM 100 ML IV SCH ×4 (00:09→18:38)
[2020-10-30 08:00] VITALS: BP 127/67
[2020-10-30] MEDS: BUDESONIDE (INHALATION) 180 MCG IH IN SCH ×3 (10:00→20:27)
[2020-10-30] MEDS: PANTOPRAZOLE 40 MG TAB PO SCH (11:00)
[2020-10-30] MEDS: ZINC SULFATE 220mg CAP or TAB PO SCH (11:00)
[2020-10-30] MEDS: FUROSEMIDE 40 MG/4 ML VIAL IV SCH (11:00)
[2020-10-30] MEDS: ASCORBIC ACID 500 MG TAB PO SCH (11:01)
[2020-10-30] MEDS: POTASSIUM CHL 20 Meq TABLET PO SCH (11:01)
[2020-10-30] MEDS ORDERED: REMDESIVIR 100 MG in SODIUM CHL 0.9% 250 ML IV ONE (15:00)
[2020-10-30 16:00] VITALS: BP 110/66
[2020-10-30] MEDS: ALBUTEROL SULF HFA 90MCG INH 200DOSE IN PRN ×2 (16:17→20:27)
[2020-10-30] MEDS ORDERED: DEXTROSE (50%) 50ML SYRG IV PRN (17:45)
[2020-10-30] MEDS: ACCU-CHEK COMFORT CURVE STRIP VI SCH (22:16)
[2020-10-30] MEDS: InsuLIN REG 1unit/0.01ml Soln (100units/ml) SC SCH (22:23)
[2020-10-30 23:36] VITALS: BP 135/72
[2020-10-30 23:51] VITALS: BP 132/62
[2020-10-31] VITALS: BP 132/62
[2020-10-31] MEDS: PIPERACILLIN-TAZOB 3.375GM 100 ML IV SCH ×3 (00:18→12:00)
[2020-10-31 01:49] VITALS: BP 135/75
[2020-10-31] MEDS: ACCU-CHEK COMFORT CURVE STRIP VI SCH ×4 (06:39→22:13)
[2020-10-31] MEDS: InsuLIN REG 1unit/0.01ml Soln (100units/ml) SC SCH ×4 (06:41→22:15)
[2020-10-31 08:00] VITALS: BP 135/82
[2020-10-31] MEDS: PANTOPRAZOLE 40 MG TAB PO SCH (09:43)
[2020-10-31] MEDS: ASCORBIC ACID 500 MG TAB PO SCH (09:44)
[2020-10-31] MEDS: ZINC SULFATE 220mg CAP or TAB PO SCH (09:44)
[2020-10-31] MEDS: FUROSEMIDE 40 MG/4 ML VIAL IV SCH (09:45)
[2020-10-31] MEDS: POTASSIUM CHL 20 Meq TABLET PO SCH (09:45)
[2020-10-31] MEDS ORDERED: ERGOCALCIFEROL 50,000 UNIT(1.25MG) CAP PO SCH (10:00)
[2020-10-31] MEDS ORDERED: ONDANSETRON HCL 4 MG/2 ML VIAL IV PRN (12:45)
[2020-10-31 13:07] LABS: Albumin 2.1 g/dL (3.4-5.0); Calcium 8.9 mg/dL (8.5-10.1); Potassium 4.5 mmol/L (3.5-5.1)
[2020-10-31 13:12] LABS: BUN/Creatinine Ratio 23.2; Total Protein 7.8 g/dL (6.4-8.2)
[2020-10-31] MEDS ORDERED: ALPRAZolam 0.25 MG TAB PO SCH (14:00)
[2020-10-31] MEDS ORDERED: ALPRAZolam 0.25 MG TAB PO PRN (14:45)
[2020-10-31] MEDS ORDERED: ACETAMINOPHEN 325 MG TAB PO PRN (15:30)
[2020-10-31 16:00] VITALS: BP 153/86
[2020-10-31] MEDS: DOXYCYCLINE 100 MG TAB/CAP PO SCH (22:13)
[2020-11-01] VITALS: BP 136/87
[2020-11-01] MEDS: ACCU-CHEK COMFORT CURVE STRIP VI SCH ×2 (06:22→11:30)
[2020-11-01] MEDS: InsuLIN REG 1unit/0.01ml Soln (100units/ml) SC SCH ×2 (06:22→12:23)
[2020-11-01 08:00] VITALS: BP 124/105
[2020-11-01] MEDS ORDERED: predniSONE 20 MG TAB PO SCH (10:00)
[2020-11-01] MEDS: FUROSEMIDE 40 MG/4 ML VIAL IV SCH (10:24)
[2020-11-01] MEDS: ZINC SULFATE 220mg CAP or TAB PO SCH (10:25)
[2020-11-01] MEDS: PANTOPRAZOLE 40 MG TAB PO SCH (10:26)
[2020-11-01] MEDS: ASCORBIC ACID 500 MG TAB PO SCH (10:26)
[2020-11-01] MEDS: DOXYCYCLINE 100 MG TAB/CAP PO SCH (10:26)
[2020-11-01] MEDS: POTASSIUM CHL 20 Meq TABLET PO SCH (10:27)
== END 2020-11-01 15:06 | disposition hospice, home (50) | DRG 177 ==
LOC: EDBD 12:00 → ER 12:00 → TELE 15:52 → TELE-WESTW 10-28 09:19
PROVIDERS: ADMIT Internal Medicine Cardiovascular Disease; ATTEND Internal Medicine Cardiovascular Disease
PROC: XW033E5 Introduction of Remdesivir Anti-infective into Peripheral Vein, Percutaneous Approach, New Technology Group 5 (ICD-10-PCS; principal; 2020-10-27)
PROC: XW13325 Transfusion of Convalescent Plasma (Nonautologous) into Peripheral Vein, Percutaneous Approach, New Technology Group 5 (ICD-10-PCS; 2020-10-30)
DX: U07.1 COVID-19 (principal); J12.82 Pneumonia due to coronavirus disease 2019; J96.91 Respiratory failure, unspecified with hypoxia; I50.33 Acute on chronic diastolic (congestive) heart failure; R79.82 Elevated C-reactive protein (CRP); D64.9 Anemia, unspecified; I49.5 Sick sinus syndrome; E11.9 Type 2 diabetes mellitus without complications; I11.0 Hypertensive heart disease with heart failure; N40.0 Benign prostatic hyperplasia without lower urinary tract symptoms; Z95.0 Presence of cardiac pacemaker; E87.8 Other disorders of electrolyte and fluid balance, not elsewhere classified
CPT/HCPCS: 36415; 36600; 71045; 80048; 80053; 82728; 82805; 82962; 83735; 83880; 84484; 85007; 85025; 85027; 85379; 86141; 86850; 86900; 86901; 87070; 87077; 87186; 87205; 87426; 94640; 96365; 96366; 96375; G0378; J1815; J2405; J2543